=== PATIENT | male | born 1960 | race Caucasian/White ===

== ENCOUNTER 2024-07-28 20:08 | Emergency (ER) | payer OTHER ==
[2024-07-28] MEDS ORDERED: Sodium Chloride 0.9% 10 ML Syringe FLUSH PRN (20:17)
[2024-07-28] MEDS ORDERED: Sodium Chloride 0.9% 2.5 ML Syringe FLUSH PRN (20:17)
[2024-07-28] MEDS: Morphine 4 MG/ML Syringe IVPUSH STA ×2 (20:22→21:42)
[2024-07-28] MEDS: Aspirin 81 MG Tab.Chew PO STA (20:22)
[2024-07-28 20:25] LABS: BASOPHILS ABSOLUTE AUTO 0.04 K/uL (0.00-0.20); BASOPHILS PERCENT AUTO 0.4 % (0.0-1.0); EOSINOPHILS ABSOLUTE AUTO 0.04 K/uL (0.00-0.45); EOSINOPHILS PERCENT AUTO 0.4 % (0.0-6.0); HEMATOCRIT 43.1 % (42.0-52.0); HEMOGLOBIN 14.9 g/dL (14.0-18.0); IMMATURE GRAN ABSOLUTE AUTO 0.05 K/uL (0.00-0.05); IMMATURE GRAN PERCENT AUTO 0.5 % (0.0-0.4); LYMPHOCYTES ABSOLUTE AUTO 2.94 K/uL (1.00-4.80); MEAN CORPUSCULAR HEMOGLOBIN 31.8 pg (28.0-32.0); MEAN CORPUSCULAR HGB CONC 34.6 g/dL (32.0-36.0); MEAN CORPUSCULAR VOLUME 92.1 fL (83.0-99.0); MEAN PLATELET VOLUME 9.4 fL (9.4-12.4); MONOCYTES ABSOLUTE AUTO 0.52 K/uL (0.00-0.80); MONOCYTES PERCENT AUTO 5.3 % (0.0-8.0); NEUTROPHILS PERCENT AUTO 63.4 % (41.0-71.0); PLATELET COUNT,PLT 272 K/uL (150-400); RED BLOOD CELL COUNT 4.68 M/uL (4.52-5.90); WHITE BLOOD CELL COUNT,WBC 9.79 K/uL (3.9-11.3)
[2024-07-28 21:01] LABS: INR 1.04 (0.86-1.11)
[2024-07-28 21:12] LABS: A/G RATIO 1.2 (0.9-1.6); ALANINE AMINOTRANSFERASE,ALT 34 IU/L (14-63); ALBUMIN 3.8 g/dL (3.4-5.0); ALKALINE PHOSPHATASE 70 U/L (46-116); ASPARTATE AMNIOTRANSFERASE,AST 21 IU/L (15-37); BILIRUBIN TOTAL 0.4 mg/dL (0.2-1.0); BLOOD UREA NITROGEN,BUN 16 mg/dL (7.0-18.0); CARBON DIOXIDE,CO2 26.9 mmol/L (21.0-32.0); CHLORIDE,CL 99 mmol/L (98-107); CREATININE 1.1 mg/dL (0.8-1.3); EST CRCL DRUG DOSING (CG) 63.43 mL/min; GLUCOSE RANDOM 123 mg/dL (74-106); LIPASE 122 U/L (16-77); MAGNESIUM 1.9 mg/dL (1.8-2.4); POTASSIUM,K 3.2 mmol/L (3.5-5.1); PROTEIN TOTAL,TP 6.9 g/dL (6.4-8.2); SODIUM,NA 138 mmol/L (136-148)
[2024-07-28 21:13] LABS: ESTIMATED GFR 75 mL/min (>60)
[2024-07-28] MEDS: Pantoprazole 40 MG in Sodium Chloride 0.9% 10 ML IVPUSH STA (21:42)
[2024-07-28] MEDS: Iopamidol 755 MG/ML 500 ML Multipack Bottle IVPUSH ONE (22:12)
[2024-07-28] MEDS: Ondansetron 4 MG/2 ML SDV IVPUSH ONE (23:55)
[2024-07-29] MEDS: Famotidine 20 MG/2 ML SDV IVPUSH ONE (00:40)
[2024-07-29] MEDS: Alum Hydrox/Mag Hydrox/Simeth 15 ML, Metoclopramide 5 MG, Lidocaine 2% 5 ML PO ONE (00:43)
== END 2024-07-29 03:25 | disposition home or self-care (01) ==
LOC: MW.ED 20:08
DX: K21.00 Gastro-esophageal reflux disease with esophagitis, without bleeding (principal); Z79.899 Other long term (current) drug therapy
CPT/HCPCS: 36415; 71045; 74177; 80053; 83690; 83735; 84484; 85025; 85610; 93005; 96374; 96375; 96376; 99285; A9270; J2270; J2405; J2470; J3490; Q9967